=== PATIENT | male | born 1995 | race Hispanic/Latino ===

== ENCOUNTER 2017-08-07 09:36 | Emergency (ER) | payer SELFPAY ==
[2017-08-07 09:42] VITALS: BMI 18.9
--- NOTE | 2017-08-07 09:49 | ED PDOC ---
Arrival/HPI - General Time Seen by Provider: 08/07/17 09:38 Historian: Patient - History of Present Illness Narrative History of Present Illness (Text): 08/07/17 09:43 21yo male with no PMHx who present with complaint of left sided ribs pain that started when he lifted 25lb object. States the pain started radiating to his back and chest. Pain is only with deep inspiration or movement. States he did not take any analgesic. Denies SOB, diaphoresis, LE edema, calf pain, nausea, dizziness, cough, any other complaint. Past Medical History - Provider Review Nursing Documentation Reviewed: Yes Family/Social History - Physician Review Nursing Documentation Reviewed: Yes Family/Social History: Unknown Family HX Allergies/Home Meds Allergies/Adverse Reactions: Allergies No Known Allergies Allergy (Verified 08/07/17 09:53) Review of Systems - Physician Review All systems were reviewed & negative as marked: Yes - Review of Systems Constitutional: Normal Eyes: Normal ENT: Normal Respiratory: Normal Cardiovascular: Chest Pain. absent: Palpitations, Edema, Calf Pain, BARRIENTOS Gastrointestinal: Normal Genitourinary Male: Normal Musculoskeletal: Arthralgias (Left ribs) Skin: Normal Neurological: Normal Endocrine: Normal Hemo/Lymphatic: Normal Psychiatric: Normal Physical Exam Vital Signs Reviewed: Yes Vital Signs Temp Pulse Resp BP Pulse Ox 08/07/17 09:50 97.5 F L 74 18 144/91 H 99 Temperature: Afebrile Blood Pressure: Normal Pulse: Regular Respiratory Rate: Normal Appearance: Positive for: Well-Appearing, Non-Toxic, Comfortable Pain Distress: None Mental Status: Positive for: Alert and Oriented X 3 - Systems Exam Head: Present: Atraumatic, Normocephalic Pupils: Present: PERRL Extroacular Muscles: Present: EOMI Conjunctiva: Present: Normal Mouth: Present: Moist Mucous Membranes Neck: Present: Normal Range of Motion Respiratory/Chest: Present: Clear to Auscultation, Good Air Exchange, Tender to Palpation (LEft anterior ribs). No: Respiratory Distress, Accessory Muscle Use , Wheezes, Decreased Breath Sounds, Rales, Retracting, Rhonchi Cardiovascular: Present: Regular Rate and Rhythm, Normal S1, S2. No: Murmurs Abdomen: Present: Normal Bowel Sounds. No: Tenderness, Distention, Peritoneal Signs Back: Present: Normal Inspection Upper Extremity: Present: Normal Inspection. No: Cyanosis, Edema Lower Extremity: Present: Normal Inspection. No: Edema Neurological: Present: GCS=15, CN II-XII Intact, Speech Normal Skin: Present: Warm, Dry, Normal Color. No: Rashes Psychiatric: Present: Alert, Oriented x 3, Normal Insight, Normal Concentration Medical Decision Making ED Course and Treatment: 08/07/17 10:18 PT in ED for stated histoy. He was comfortable in ED. Hemodynamically stable EKG NSR @ 76BPM Ribs/CXR NAD/No PTX Pt's pain mostly MS secondary to strain. PT's pain was controlled in ED with Ibuprofen. He will be DC home with Ibuprofen. Referred to his PMd/clinic. TRT ED for any new or worsening symptoms. - RAD Interpretation Radiology Orders: 08/07/17 09:42 RIBS LEFT & PA CHEST [RAD] Stat - Medication Orders Current Medication Orders: Discontinued Medications Ibuprofen (Motrin Tab) 600 mg PO STAT STA Stop: 08/07/17 09:51 Last Admin: 08/07/17 10:11 Dose: 600 mg MAR Pain/Vitals Document 08/07/17 10:11 HI (Rec: 08/07/17 10:12 WI [id number]) Pain Reassessment Is This A Pain ReAssessment? No Sleep Is patient sleeping during reassessment? No Presence of Pain Presence of Pain Yes Pain Scale Used Pain Scale Used Numeric Location Pain Location Body Site Chest Disposition/Present on Arrival - Present on Arrival Any Indicators Present on Arrival: No History of DVT/PE: No History of Uncontrolled Diabetes: No Urinary Catheter: No History of Decub. Ulcer: No History Surgical Site Infection Following: None - Disposition Have Diagnosis and Disposition been Completed?: Yes Diagnosis: Rib pain Disposition: HOME/ ROUTINE Disposition Time: 10:20 Patient Plan: Discharge Condition: STABLE Discharge Instructions (ExitCare): Chest Pain (ED) Additional Instructions: Take medication as directed Rest follow up with your doctor/Clinic Return to ED for any new or worsening symptoms Prescriptions: Ibuprofen [Motrin Tab] 600 mg PO Q6 #20 tab Referrals: [facility] at [facility] [place] [Outside] - Follow up with primary
[2017-08-07 10:04] VITALS: TEMP 97.5
--- NOTE | 2017-08-07 10:16 | RAD ---
PROCEDURE: Radiographs of the Chest and Left Ribs. HISTORY: ribs pain COMPARISON: None available. TECHNIQUE: Frontal radiograph of the chest and multiple oblique radiographs of the left ribs were obtained. FINDINGS: LEFT RIBS: No fracture or focal lesion visualized. LUNGS: Clear. PLEURA: No pneumothorax or pleural fluid. CARDIOVASCULAR: Normal sized heart. No pulmonary vascular congestion. OTHER FINDINGS: None. IMPRESSION: Unremarkable radiographs of the chest and left ribs. No left rib fracture.
[2017-08-07 10:33] VITALS: BP 142/87; PULSE 82; RESP 16; O2SAT 100
--- NOTE | 2017-08-07 17:13 | CARD ---
APPROVED REPORT EKG Measurement Heart [id number] <Conclusion> Normal sinus rhythm Early repolarization Normal ECG
== END 2017-08-07 10:37 | disposition home or self-care (01) ==
LOC: ED 09:36
DX: R07.81 Pleurodynia (principal)